=== PATIENT | male | born 1965 | race Caucasian/White ===

== ENCOUNTER → 2017-08-16 | Outpatient (CLI) | payer BC ==
[2016-03-03 07:56] VITALS: BP 141/81
--- NOTE | 2017-08-16 10:20 | RAD ---
Indication: Cough. Time of exam 10:12 AM Correlation is made with prior study from 09/23/2015. FINDINGS: The heart size is normal. The lungs are clear. No pleural effusion or pneumothorax is identified. The pulmonary vascularity is normal. IMPRESSION: No acute abnormality detected.
== END | disposition home or self-care (01) ==
LOC: RAD 10:00
PROVIDERS: ATTEND Nurse Practitioner Family
DX: R05 Cough (principal); Z87.891 Personal history of nicotine dependence
CPT/HCPCS: 71020

== ENCOUNTER → 2017-11-03 | Outpatient (CLI) | payer BC ==
[2016-03-03 07:56] VITALS: BP 141/81
--- NOTE | 2017-11-03 08:20 | RAD ---
2 view CXR: Clinical indications: Shortness of air. Comparison: August 16, 2017 Findings: No acute lung infiltrate or pleural effusion or pulmonary edema or lung mass or pneumothorax is seen. The heart size, pulmonary vasculature, mediastinum and both jaspal are unremarkable. The osseous structures appear intact. Impression: No acute radiographic abnormality is seen.
== END | disposition home or self-care (01) ==
LOC: PMG 07:43
PROVIDERS: ATTEND Physician Assistant
DX: R05 Cough (principal); R06.02 Shortness of breath
CPT/HCPCS: 71046

== ENCOUNTER → 2018-09-07 | Outpatient (CLI) | payer BC ==
[2016-03-03 07:56] VITALS: BP 141/81
--- NOTE | 2018-09-07 13:08 | RAD ---
TESTICULAR/SCROTUM: 09/07/2018 11:08 AM INDICATION: 53 years old Male. . COMPARISON: None available. FINDINGS: Grayscale, color Doppler and spectral waveform analysis were utilized. Right: Testicle: Normal in echotexture without focal lesion. Size: 4.7 x 3.5 x 2.2 cm. Flow: Normal color Doppler flow pattern. Epididymis: Normal in size and echotexture without focal lesion. Hydrocele: None. Varicocele: None. Left: Testicle: Normal in echotexture without focal lesion. Size: 4.4 x 3.1 x 2.4 cm. Flow: Normal color Doppler flow pattern. Epididymis: Normal in size and echotexture without focal lesion. There is a 3 mm epididymal cyst. Hydrocele: None. Varicocele: Small left-sided varicocele is identified with veins measuring up to 3 mm in diameter. No significant change in diameter of the veins with Valsalva. IMPRESSION: 1. Perfusion is noted bilaterally at the time of imaging. No suspicious testicular mass. 2. Small left varicocele. Electronically signed by: Natividad Maddox MD (09/07/2018 1:04 PM) [id number]
== END | disposition home or self-care (01) ==
LOC: US 10:48
PROVIDERS: ATTEND Family Medicine
DX: I86.1 Scrotal varices (principal)
CPT/HCPCS: 76870

== ENCOUNTER 2019-09-13 08:09 | Observation (INO) | payer BC ==
[~2019-09-13] VITALS: Ht 175.3 cm; Wt 116.6 kg
[2019-09-13 08:33] LABS: BASO # 0.3 x10^3/uL (0.0-0.2); BASO % 2 % (0-3); EOS # 0.2 x10^3/uL (0.0-0.7); EOS % 1 % (0-3); HEMATOCRIT 52.2 % (39.0-53.0); HEMOGLOBIN 17.8 g/dL (13.0-17.5); LYMPH # 2.5 x10^3/uL (1.0-4.8); LYMPH % 18 % (24-48); MEAN CORPUSCULAR HEMOGLOBIN 30 pg (25-35); MEAN CORPUSCULAR HGB CONC 34 g/dL (31-37); MEAN CORPUSCULAR VOLUME 87 fL (79-100); MONO # 1.6 x10^3/uL (0.0-1.1); MONO % 12 % (0-9); NEUT # 9.7 x10^3uL (1.8-7.7); NEUT % 68 % (31-73); PLATELET COUNT 307 x10^3/uL (140-400); RED BLOOD COUNT 5.99 x10^6/uL (4.30-5.70); RED CELL DISTRIBUTION WIDTH 13.6 % (11.5-14.5); WHITE BLOOD COUNT 14.3 x10^3/uL (4.0-11.0)
[2019-09-13 08:38] LABS: CREATININE 1.1 mg/dL (0.7-1.3)
--- NOTE | 2019-09-13 08:40 | RAD ---
PORTABLE CHEST 1V 09/13/2019 8:18 AM INDICATION: Chest pain COMPARISON: 11/03/2017 TECHNIQUE: Portable frontal view of the chest is provided. FINDINGS: The cardiomediastinal silhouette is similar in appearance. Limited evaluation secondary to technique. No new airspace consolidation. There are no significant pleural effusions. There is no pulmonary vascular congestion. No pneumothorax. IMPRESSION: There is no acute cardiopulmonary process. Electronically signed by: Natividad Maddox MD (09/13/2019 8:37 AM) [id number]
[2019-09-13 08:50] LABS: ALBUMIN 4.1 g/dL (3.4-5.0); ALBUMIN/GLOBULIN RATIO 0.9 (1.0-1.7); MAGNESIUM 1.8 mg/dL (1.8-2.4); TOTAL BILIRUBIN 0.7 mg/dL (0.2-1.0); TOTAL PROTEIN 8.6 g/dL (6.4-8.2)
[2019-09-13] MEDS ORDERED: IOHEXOL 350 MG/ML 100 ML VIAL. IV ONE (09:30)
--- NOTE | 2019-09-13 10:00 | RAD ---
Examination: CT ANGIOGRAPHY CHEST History: Shortness of breath and chest pain Comparison/Correlation: None Findings: Axial images of chest were obtained following IV contrast. Sagittal and coronal reformatted images were provided. Maximum intensity projection images were acquired. Pulmonary arterial vasculature is normal with no abnormal metabolic disease. No enlarged thoracic lymph nodes. No pneumothorax. Small bullae are present involving the right lower lobe. Subtle interstitial thickening of the lung araiza noted. The tracheobronchial tree is unremarkable. No pericardial or pleural effusion. Thoracic aorta is not opacified for arteriographic assessment but the morphology is grossly unremarkable. Fatty infiltration of the liver noted. Diffuse enlargement which is nodular in appearance involving the left adrenal gland is present likely representing adenomatous involvement. The density slightly above the expected range for adenomatous involvement and of 16 Hounsfield units. Small nodule involving the left adrenal gland has a density expected of benign adenoma. Kyphosis of thoracic spine is noted. Impression: No pulmonary arterial thromboembolic disease. No infiltrates. Nodular appearance of the adrenal glands likely representing adenomatous involvement. Interval follow CT or MRI in 6 months to assess stability may be performed if clinically desired. PQRS Compliance Statement: One or more of the following individualized dose reduction techniques were utilized for this examination: 1. Automated exposure control 2. Adjustment of the mA and/or kV according to patient size 3. Use of iterative reconstruction technique Electronically signed by: Edgar García MD (09/13/2019 9:57 AM) [facility]
[2019-09-13 10:28] LABS: BACTERIA,URINE 0 /HPF (0-FEW); BILIRUBIN,URINE NEG (NEG); CLARITY,URINE HAZY; COLOR,URINE YELLOW; GLUCOSE,URINE NEG (NEG); NITRITE,URINE NEG (NEG); SQUAMOUS EPITHELIAL CELL,UR OCC /LPF; WBC,URINE OCC /HPF (0-4)
[2019-09-13 10:29] LABS: HYALINE CASTS, URINE FEW /HPF
[2019-09-13] MEDS ORDERED: ASPIRIN 81 MG TAB.CHEW PO ONE ×2 (12:15→13:30)
--- NOTE | 2019-09-13 12:15 | PHYS DOC ---
Past History Past Medical History: COPD, Diabetes, Hypertension, Other Past Surgical History: Other Smoking: Quit Greater Than 1 Year Additional Smoking Information: quit in 2014 Alcohol Use: Occasionally Drug Use: None Adult General Chief Complaint Chief Complaint: HYPERTENSION HPI HPI Patient is a 54-year-old male with history hypertension and diabetes who was sent here from his doctor clinic due to elevated blood pressure, dyspnea. Patient said he started having chest pressure last night , feeling nauseous, sweaty, he did feel better so he went to sleep. This morning he woke up , went to work, he fell dizzy, having trouble breathing and nauseous again , he was sweating so he checked his blood pressure at work and it was elevated so he was sent to see his doctor who then sent him here for evaluation. Patient denies any chest pain at this time. Patient denies any fever, no headache. he had no previous history of coronary artery disease. he did take his blood pressure medications this morning. all other systems were negative except stated in HPI. Review of Systems Review of Systems See above Current Medications Current Medications Current Medications Medications (Trade) Dose Ordered Sig/Dayana Start Time Stop Time Status Last Admin Dose Admin Iohexol (Omnipaque 350 Mg/ml) 100 ml 1X ONCE 09/13/19 09:30 09/13/19 09:31 DC 09/13/19 09:30 100 ML Allergies Allergies Allergies Coded Allergies Type Severity Reaction Last Updated Verified No Known Drug Allergies 09/13/19 No Physical Exam Physical Exam See above Constitutional: Well developed, well nourished, no acute distress, non-toxic appearance. [] HENT: Normocephalic, atraumatic, bilateral external ears normal, oropharynx moist, no oral exudates, nose normal. [] Eyes: PERRLA, EOMI, conjunctiva normal, no discharge. [] Neck: Normal range of motion, no tenderness, supple, no stridor. [] Cardiovascular:Heart rate regular rhythm, no murmur [] Lungs & Thorax: Bilateral breath sounds clear to auscultation [] Abdomen: Bowel sounds normal, soft, no tenderness, no masses, no pulsatile masses. [] Skin: Warm, dry, no erythema, no rash. [] Back: No tenderness, no CVA tenderness. [] Extremities: No tenderness, no cyanosis, no clubbing, ROM intact, no edema. [] Neurologic: Alert and oriented X 3, normal motor function, normal sensory function, no focal deficits noted. [] Psychologic: Affect normal, judgement normal, mood normal. [] Current Patient Data Vital Signs Vital Signs Date Time Temp Pulse Resp B/P (MAP) Pulse Ox O2 Delivery O2 Flow Rate FiO2 09/13/19 11:19 86 16 146/86 (106) 96 Room Air 09/13/19 08:23 99.2 Lab Results Laboratory Tests Test 09/13/19 08:15 09/13/19 09:50 White Blood Count 14.3 x10^3/uL (4.0-11.0) H Red Blood Count 5.99 x10^6/uL (4.30-5.70) H Hemoglobin 17.8 g/dL (13.0-17.5) H Hematocrit 52.2 % (39.0-53.0) Mean Corpuscular Volume 87 fL (79-100) Mean Corpuscular Hemoglobin 30 pg (25-35) Mean Corpuscular Hemoglobin Concent 34 g/dL (31-37) Red Cell Distribution Width 13.6 % (11.5-14.5) Platelet Count 307 x10^3/uL (140-400) Neutrophils (%) (Auto) 68 % (31-73) Lymphocytes (%) (Auto) 18 % (24-48) L Monocytes (%) (Auto) 12 % (0-9) H Eosinophils (%) (Auto) 1 % (0-3) Basophils (%) (Auto) 2 % (0-3) Neutrophils # (Auto) 9.7 x10^3uL (1.8-7.7) H Lymphocytes # (Auto) 2.5 x10^3/uL (1.0-4.8) Monocytes # (Auto) 1.6 x10^3/uL (0.0-1.1) H Eosinophils # (Auto) 0.2 x10^3/uL (0.0-0.7) Basophils # (Auto) 0.3 x10^3/uL (0.0-0.2) H Prothrombin Time 10.6 SEC (9.4-11.4) Prothrombin Time INR 1.0 (0.9-1.1) Activated Partial Thromboplast Time 27 SEC (23-33) Sodium Level 138 mmol/L (136-145) Potassium Level 4.0 mmol/L (3.5-5.1) Chloride Level 100 mmol/L (98-107) Carbon Dioxide Level 25 mmol/L (21-32) Anion Gap 13 (6-14) Blood Urea Nitrogen 12 mg/dL (8-26) Creatinine 1.1 mg/dL (0.7-1.3) Estimated GFR (Cockcroft-Gault) 70.0 BUN/Creatinine Ratio 11 (6-20) Glucose Level 133 mg/dL (70-99) H Calcium Level 10.0 mg/dL (8.5-10.1) Magnesium Level 1.8 mg/dL (1.8-2.4) Total Bilirubin 0.7 mg/dL (0.2-1.0) Aspartate Amino Transferase (AST) 20 U/L (15-37) Alanine Aminotransferase (ALT) 26 U/L (16-63) Alkaline Phosphatase 113 U/L (46-116) Troponin I Quantitative < 0.017 ng/mL (0-0.055) VS-Yhv-M-Type Natriuretic Peptide 10 pg/mL (0-124) Total Protein 8.6 g/dL (6.4-8.2) H Albumin 4.1 g/dL (3.4-5.0) Albumin/Globulin Ratio 0.9 (1.0-1.7) L Lipase 77 U/L (73-393) Urine Collection Type Unknown Urine Color Yellow Urine Clarity Hazy Urine pH 7.0 Urine Specific [place] 1.020 Urine Protein Neg (NEG-TRACE) Urine Glucose (UA) Neg mg/dL (NEG) Urine Ketones (Stick) Neg mg/dL (NEG) Urine Blood Neg (NEG) Urine Nitrite Neg (NEG) Urine Bilirubin Neg (NEG) Urine Urobilinogen Dipstick 2.0 mg/dL (0.2 mg/dL) Urine Leukocyte Esterase Neg (NEG) Urine RBC 1-2 /HPF (0-2) Urine WBC Occ /HPF (0-4) Urine Squamous Epithelial Cells Occ /LPF Urine Bacteria 0 /HPF (0-FEW) Urine Hyaline Casts Few /HPF Urine Mucus Slight /LPF EKG EKG EKG WAS DONE AND READ BY THIS PHYSICIAN AT 818, RATE OF 107 BPM, NO STEMI, SINUS TACHYCARDIA. [] Radiology/Procedures Radiology/Procedures [][address] [address] IMAGING REPORT Signed PATIENT: ORLY ARCINIEGA ACCOUNT: [id number] : 1965 LOCATION: ER AGE: 54 SEX: M EXAM STATUS: REG ER ORD. PHYSICIAN: JESSICA YARBROUGH DO REASON: soa, chest pain PROCEDURE: CT ANGIOGRAPHY CHEST Examination: CT ANGIOGRAPHY CHEST History: Shortness of breath and chest pain Comparison/Correlation: None Findings: Axial images of chest were obtained following IV contrast. Sagittal and coronal reformatted images were provided. Maximum intensity projection images were acquired. Pulmonary arterial vasculature is normal with no abnormal metabolic disease. No enlarged thoracic lymph nodes. No pneumothorax. Small bullae are present involving the right lower lobe. Subtle interstitial thickening of the lung araiza noted. The tracheobronchial tree is unremarkable. No pericardial or pleural effusion. Thoracic aorta is not opacified for arteriographic assessment but the morphology is grossly unremarkable. Fatty infiltration of the liver noted. Diffuse enlargement which is nodular in appearance involving the left adrenal gland is present likely representing adenomatous involvement. The density slightly above the expected range for adenomatous involvement and of 16 Hounsfield units. Small nodule involving the left adrenal gland has a density expected of benign adenoma. Kyphosis of thoracic spine is noted. Impression: No pulmonary arterial thromboembolic disease. No infiltrates. Nodular appearance of the adrenal glands likely representing adenomatous involvement. Interval follow CT or MRI in 6 months to assess stability may be performed if clinically desired. PQRS Compliance Statement: One or more of the following individualized dose reduction techniques were utilized for this examination: 1. Automated exposure control 2. Adjustment of the mA and/or kV according to patient size 3. Use of iterative reconstruction technique Electronically signed by: Edgar Oconnor MD (09/13/2019 9:57 AM) [facility] DICTATED AND SIGNED BY: EDGAR OCONNOR MD DATE: 09/13/19 0957 CC: JESSICA YARBROUGH DO; CALI CHIN ~ Course & Med Decision Making Course & Med Decision Making Pertinent Labs and Imaging studies reviewed. (See chart for details) [] Dragon Disclaimer Dragon Disclaimer This electronic medical record was generated, in whole or in part, using a voice recognition dictation system. Departure Departure: Impression: Primary Impression: Chest pain Additional Impression: Hypertension Disposition: 09 ADMITTED INPATIENT Admitting Physician: Basilia Pierson Condition: STABLE Referrals: CALI CHIN (PCP) HEART Score for Chest Pain PTs The HEART Score for CP Pts HEART Score for Chest Pain: HEART Score for Chest Pain Response (Comments) Value History Highly Suspicious 2 ECG Nonspecific Repolarizatio 1 Age >45 - < 65 1 Risk Factors 1 or 2 Risk Factors 1 Troponin < Normal Limit 0 Total 5 Risk Factors: Risk Factors: DM, Current or recent (<one month) smoker, HTN, HLP, family history of CAD, obesity. Risk Scores: Score 0 - 3: 2.5% MACE over next 6 weeks - Discharge Home Score 4 - 6: 20.3% MACE over next 6 weeks - Admit for Clinical Observation Score 7 - 10: 72.7% MACE over next 6 weeks - Early Invasive Strategies Problem Qualifiers JESSICA YARBROUGH DO Sep 13, 2019 12:15
[2019-09-13] MEDS ORDERED: METOPROLOL TARTRATE 5 MG/5 ML VIAL. IV ONE (12:30)
[2019-09-13 16:50] LABS: INFLUENZA A PATIENT NEGATIVE (NEGATIVE); INFLUENZA B PATIENT NEGATIVE (NEGATIVE)
[2019-09-13 17:16] VITALS: BP 165/96
--- NOTE | 2019-09-13 17:24 | NUR ---
The patient, ORLY ARCINIEGA, 54 y/o, M admitted by JESSICA YBARRA MD, was given written information regarding hospital policies, unit procedures and contact persons. Valuables were checked and left with patient at bedside. Patient admitted to [address] [place] [address] with a diagnosis of chest pain. Cardiology was on unit at the time of admission and consulted with patient. Dr. Ybarra was notified via telephone of patient arrival. No new orders at this time. Cardiology orders were to monitor patient blood pressure, reconcile home meds and notify cardiology when meds are in, monitor troponins and follow up ECHOCARDIOGRAM when patient discharged from hospital. Patient is alert and oriented x 4 , speech is clear, able to make wants and needs known and able to verbalize understanding of others. Denies any chest pain at this time.
--- NOTE | 2019-09-13 17:41 | EKG ---
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
[2019-09-13] MEDS ORDERED: METF10007 PO (18:30)
[2019-09-13] MEDS ORDERED: BUPR300T92 PO (18:33)
[2019-09-13] MEDS ORDERED: FURO40TA4 PO (18:33)
[2019-09-13] MEDS ORDERED: HYDR12.572 PO (18:33)
[2019-09-13] MEDS ORDERED: LISI40TA PO (18:33)
[2019-09-13] MEDS ORDERED: ZOLP12.54 PO (18:33)
[2019-09-13] MEDS ORDERED: POTA20TA4 PO (18:33)
[2019-09-13] MEDS ORDERED: ZOLPIDEM 5 MG TABLET. PO PRN ×2 (18:45→22:30)
[2019-09-13 19:41] VITALS: BP 133/78
--- NOTE | 2019-09-13 20:12 | CONS ---
DATE OF CONSULTATION: 09/13/2019 REASON FOR CONSULTATION: Chest pain. HISTORY OF PRESENT ILLNESS: The patient is a pleasant 54-year-old man with hypertension, diabetes, came into the hospital in the setting of chest discomfort. He had some chest discomfort yesterday in the setting of elevated blood pressures and also had some recurrence this morning. He was advised to seek attention in the ER. Upon arrival to the ER, he was hypertensive with systolic blood pressure above 170 and was treated with medical therapy and had some improvement. He was admitted for a rule out. In speaking with the patient and his family, he has not had any significant cardiac limitations such as chest pain, dyspnea, orthopnea, PND or lower extremity edema. No syncope or palpitations. He has never had any prior cardiac interventions but approximately 5 years ago had a heart catheterization according to him for evaluation of atypical chest pain. PAST MEDICAL HISTORY: As noted above. SOCIAL HISTORY: He works at the [employer]. Denies any alcohol, tobacco or illicit drug use. He is . FAMILY HISTORY: Notable for coronary artery disease in his father in his 50s. REVIEW OF SYSTEMS: Negative for 10 out of 14 systems reviewed, unless otherwise mentioned above in HPI. ALLERGIES: No known drug allergies. CURRENT CARDIOVASCULAR MEDICATIONS: He does not remember his current cardiac medications and he is waiting a list to be sent from home at this time. PHYSICAL EXAMINATION: VITAL SIGNS: Stable with blood pressure reduced to 145/81. GENERAL: He is alert and oriented, no acute distress. HEAD AND NECK: Unremarkable. CARDIAC: Regular rate and rhythm without murmurs, rubs or gallops. LUNGS: Clear to auscultation bilaterally. ABDOMEN: Soft, nontender, nondistended. EXTREMITIES: Without any clubbing or cyanosis. 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 MUSCULOSKELETAL: No obvious trauma. NEUROLOGIC: No focal deficits. DIAGNOSTIC STUDIES: Cardiac enzymes are negative x 2 and EKG is unremarkable. IMPRESSION: Chest pain, likely secondary to uncontrolled hypertension: The etiology of uncontrolled hypertension is a little unclear. I suspect that he has had some suboptimally treated blood pressures. RECOMMENDATIONS: Upon availability and subsequent review of his home medications, we will try to up titrate doses of his current meds as tolerated and if he is maximized on his current medications, we will likely add additional agents to obtain a more appropriate blood pressure of less than 140. We will plan for ambulating the patient after his blood pressure control and if he is chest pain free, could be discharged with plans for outpatient ischemic evaluation. Should he have any recurrent chest pain at that time, could consider further evaluation with invasive versus noninvasive testing. Thank you for this consultation. GEORGETTE HENDRICKSON MD DR: ELZBIETA/jillian JOB#: [id number] / [id number]
[2019-09-13 22:20] VITALS: BP 143/76
--- NOTE | 2019-09-13 22:35 | HP ---
ADMIT DATE: 09/13/2019 HISTORY OF PRESENT ILLNESS: The patient is a 54-year-old gentleman who experienced a 1-day history of chest pressure, feeling nausea, some sweating, so he went to sleep, morning woke up, he was still feeling somewhat dizzy and trouble breathing, as a result, went into his primary care. They sent to the Emergency Room where he was evaluated and admitted for rule out OH protocol. The patient has multiple risk factors including diabetes, coronary artery disease, hypercholesterolemia and depression for that matter. The patient was admitted for rule out OH protocol. PAST MEDICAL HISTORY: As noted, he has had angina, coronary artery disease, hypercholesterolemia, hypertension, bone cancer, left arm amputation, depression, influenza vaccination up-to-date. The patient extended spectrum beta lactamase use, vancomycin-resistant Staph aureus, methicillin-resistant Staph aureus it is noted. ALLERGIES: No known drug allergies. MEDICATIONS: Include lisinopril 40 mg a day, bupropion XL 300 mg a day, Ambien 12.5 at bedtime, furosemide 40 mg a day, hydrochlorothiazide 12.5 mg a day, metformin 1000 mg b.i.d. FAMILY HISTORY: None unremarkable. SOCIAL HISTORY: The patient denies any smoking, alcohol or tobacco use. FAMILY HISTORY: Notable for coronary artery disease. REVIEW OF SYSTEMS: The patient has noted chest tightness. He did have an elevated blood pressure 170, but no neurological symptomatology. The patient denies any syncope, orthopnea or dyspnea. The patient denies abdominal pain, but does have some nausea. The patient otherwise has no neurological dysfunction at the present time. PHYSICAL EXAMINATION: GENERAL: This is a pleasant gentleman in no apparent distress. VITAL SIGNS: Blood pressure 145/78, respiratory rate 20, pulse 104 running a low-grade temperature of 99.2. NEUROLOGIC: The patient otherwise alert and oriented x 3. NECK: Supple, without JVD, carotid bruits. LUNGS: The patient's lungs were clear to auscultation, slight decreased breath sounds, but otherwise unremarkable. CARDIOVASCULAR: Regular sinus rhythm, S1, S2, without murmur, rub, thrill, or extra heart sound. ABDOMEN: Soft, nontender, no rebound or guarding. Positive bowel sounds, no hepatosplenomegaly. EXTREMITIES: No clubbing, cyanosis, or edema. The patient had a left upper arm extremity amputation at the level of the elbow. Otherwise, neurologically the patient is alert and oriented. Speech is fluent, spontaneous, appropriate. Cranial nerves 2-12 are grossly intact. The patient will be admitted for further evaluation as noted. IMPRESSION: Chest pain, possibly related to uncontrolled blood pressure as his blood pressure had gone up to 170 while he was coming into the Emergency Room. PLAN: The patient will be admitted for rule out [place] protocol. Dr. Diaz will be consulted and make further evaluation on him as indicated with rule out OH protocol. JESSICA YBARRA MD DR: FADI/jillian JOB#: [id number] / [id number]
[2019-09-14 05:21] VITALS: BP 128/83
[2019-09-14 06:34] LABS: BASO # 0.1 x10^3/uL (0.0-0.2); BASO % 1 % (0-3); EOS # 0.2 x10^3/uL (0.0-0.7); EOS % 3 % (0-3); HEMATOCRIT 48.5 % (39.0-53.0); HEMOGLOBIN 16.7 g/dL (13.0-17.5); LYMPH # 2.3 x10^3/uL (1.0-4.8); LYMPH % 24 % (24-48); MEAN CORPUSCULAR HEMOGLOBIN 30 pg (25-35); MEAN CORPUSCULAR HGB CONC 34 g/dL (31-37); MEAN CORPUSCULAR VOLUME 87 fL (79-100); MONO # 1.2 x10^3/uL (0.0-1.1); MONO % 12 % (0-9); NEUT # 5.9 x10^3uL (1.8-7.7); NEUT % 60 % (31-73); PLATELET COUNT 259 x10^3/uL (140-400); RED BLOOD COUNT 5.59 x10^6/uL (4.30-5.70); RED CELL DISTRIBUTION WIDTH 13.4 % (11.5-14.5); WHITE BLOOD COUNT 9.7 x10^3/uL (4.0-11.0)
[2019-09-14 06:45] LABS: CALCIUM 8.8 mg/dL (8.5-10.1); CREATININE 0.8 mg/dL (0.7-1.3); GFR 101.1; POTASSIUM 4.2 mmol/L (3.5-5.1)
[2019-09-14 07:38] VITALS: BP 128/83
[2019-09-14] MEDS ORDERED: buPROPion XL 300 MG TAB.ER.24H. PO SCH (08:00)
--- NOTE | 2019-09-14 08:13 | PDOC ---
CARDIO Progress Notes Date & Time Date of Service DATE: 09/14/19 TIME: 08:02 Time of Evaluation 08:02 Subjective Notes No chest pain, shortness of breath, dizziness, diaphoresis Vitals Vitals Vital Signs Date Time Temp Pulse Resp B/P (MAP) Pulse Ox O2 Delivery O2 Flow Rate FiO2 09/14/19 07:38 81 128/83 09/14/19 05:21 98.0 18 95 Room Air Weight Weight [ ] Input and Output I.O. Intake and Output 09/14/19 06:59 Intake Total 720 ml Balance 720 ml Intake Oral 720 ml # Voids 2 Laboratory Labs Laboratory Tests Test 09/13/19 08:15 09/13/19 09:50 09/13/19 16:20 09/13/19 16:53 White Blood Count 14.3 x10^3/uL (4.0-11.0) Red Blood Count 5.99 x10^6/uL (4.30-5.70) Hemoglobin 17.8 g/dL (13.0-17.5) Hematocrit 52.2 % (39.0-53.0) Mean Corpuscular Volume 87 fL (79-100) Mean Corpuscular Hemoglobin 30 pg (25-35) Mean Corpuscular Hemoglobin Concent 34 g/dL (31-37) Red Cell Distribution Width 13.6 % (11.5-14.5) Platelet Count 307 x10^3/uL (140-400) Neutrophils (%) (Auto) 68 % (31-73) Lymphocytes (%) (Auto) 18 % (24-48) Monocytes (%) (Auto) 12 % (0-9) Eosinophils (%) (Auto) 1 % (0-3) Basophils (%) (Auto) 2 % (0-3) Neutrophils # (Auto) 9.7 x10^3uL (1.8-7.7) Lymphocytes # (Auto) 2.5 x10^3/uL (1.0-4.8) Monocytes # (Auto) 1.6 x10^3/uL (0.0-1.1) Eosinophils # (Auto) 0.2 x10^3/uL (0.0-0.7) Basophils # (Auto) 0.3 x10^3/uL (0.0-0.2) Prothrombin Time 10.6 SEC (9.4-11.4) Prothromb Time International Ratio 1.0 (0.9-1.1) Activated Partial Thromboplast Time 27 SEC (23-33) Sodium Level 138 mmol/L (136-145) Potassium Level 4.0 mmol/L (3.5-5.1) Chloride Level 100 mmol/L (98-107) Carbon Dioxide Level 25 mmol/L (21-32) Anion Gap 13 (6-14) Blood Urea Nitrogen 12 mg/dL (8-26) Creatinine 1.1 mg/dL (0.7-1.3) Estimated GFR (Cockcroft-Gault) 70.0 BUN/Creatinine Ratio 11 (6-20) Glucose Level 133 mg/dL (70-99) Calcium Level 10.0 mg/dL (8.5-10.1) Magnesium Level 1.8 mg/dL (1.8-2.4) Total Bilirubin 0.7 mg/dL (0.2-1.0) Aspartate Amino Transf (AST/SGOT) 20 U/L (15-37) Alanine Aminotransferase (ALT/SGPT) 26 U/L (16-63) Alkaline Phosphatase 113 U/L (46-116) Troponin I Quantitative < 0.017 ng/mL (0-0.055) < 0.017 ng/mL (0-0.055) YG-Tas-P-Type Natriuretic Peptide 10 pg/mL (0-124) Total Protein 8.6 g/dL (6.4-8.2) Albumin 4.1 g/dL (3.4-5.0) Albumin/Globulin Ratio 0.9 (1.0-1.7) Lipase 77 U/L (73-393) Urine Collection Type Unknown Urine Color Yellow Urine Clarity Hazy Urine pH 7.0 Urine Specific Mallard 1.020 Urine Protein Neg (NEG-TRACE) Urine Glucose (UA) Neg mg/dL (NEG) Urine Ketones (Stick) Neg mg/dL (NEG) Urine Blood Neg (NEG) Urine Nitrite Neg (NEG) Urine Bilirubin Neg (NEG) Urine Urobilinogen Dipstick 2.0 mg/dL (0.2 mg/dL) Urine Leukocyte Esterase Neg (NEG) Urine RBC 1-2 /HPF (0-2) Urine WBC Occ /HPF (0-4) Urine Squamous Epithelial Cells Occ /LPF Urine Bacteria 0 /HPF (0-FEW) Urine Hyaline Casts Few /HPF Urine Mucus Slight /LPF Influenza Type A (Rapid) Negative (NEGATIVE) Influenza Type B (Rapid) Negative (NEGATIVE) Glucose (Fingerstick) 140 mg/dL (70-99) Test 09/13/19 20:06 09/14/19 06:13 09/14/19 07:21 Glucose (Fingerstick) 179 mg/dL (70-99) 130 mg/dL (70-99) White Blood Count 9.7 x10^3/uL (4.0-11.0) Red Blood Count 5.59 x10^6/uL (4.30-5.70) Hemoglobin 16.7 g/dL (13.0-17.5) Hematocrit 48.5 % (39.0-53.0) Mean Corpuscular Volume 87 fL (79-100) Mean Corpuscular Hemoglobin 30 pg (25-35) Mean Corpuscular Hemoglobin Concent 34 g/dL (31-37) Red Cell Distribution Width 13.4 % (11.5-14.5) Platelet Count 259 x10^3/uL (140-400) Neutrophils (%) (Auto) 60 % (31-73) Lymphocytes (%) (Auto) 24 % (24-48) Monocytes (%) (Auto) 12 % (0-9) Eosinophils (%) (Auto) 3 % (0-3) Basophils (%) (Auto) 1 % (0-3) Neutrophils # (Auto) 5.9 x10^3uL (1.8-7.7) Lymphocytes # (Auto) 2.3 x10^3/uL (1.0-4.8) Monocytes # (Auto) 1.2 x10^3/uL (0.0-1.1) Eosinophils # (Auto) 0.2 x10^3/uL (0.0-0.7) Basophils # (Auto) 0.1 x10^3/uL (0.0-0.2) Sodium Level 138 mmol/L (136-145) Potassium Level 4.2 mmol/L (3.5-5.1) Chloride Level 101 mmol/L (98-107) Carbon Dioxide Level 26 mmol/L (21-32) Anion Gap 11 (6-14) Blood Urea Nitrogen 13 mg/dL (8-26) Creatinine 0.8 mg/dL (0.7-1.3) Estimated GFR (Cockcroft-Gault) 101.1 Glucose Level 145 mg/dL (70-99) Calcium Level 8.8 mg/dL (8.5-10.1) Physical Exams HEENT: Neck Supple W Full Motion Chest: Symmetric Lungs: Clear to Auscultation Heart: S1S2, RRR Abdomen: Soft N/T Extremities: No Edema Neurology: alert, oriented, follow commands Assessment Assessment 1. Chest pain, atypical; AMI ruled out. Most probably secondary to #2. 2. Hypertension; now controlled 3. Hyperlipidemia 4. Diabetes,II Recommendations Lipids- statin if indicated ASA Add low-dose BB Will arrange for outpatient stress test based upon risk factors May discharge from a CV standpoint and f/u in our office. FRANNIE AVALOS APRN Sep 14, 2019 08:13
[2019-09-14] MEDS ORDERED: NITR0.4T22 SL (08:28)
--- NOTE | 2019-09-14 08:56 | NUR ---
Discharge Note: PERCY ARCINIEGA Discharge instructions and discharge home medications reviewed with Patient and a copy given. All questions have been answered and understanding verbalized. The following instructions and handouts were given: CHEST PAIN Discontinued lines and drains: IV IN RAC D/C TIP IN TACT Patient discharged to home. Son present at bedside at the time of discharge.
[2019-09-14] MEDS ORDERED: hydroCHLOROthiazide 12.5 MG CAPSULE PO SCH (09:00)
[2019-09-14] MEDS ORDERED: POTASSIUM CHLORIDE 20 MEQ TABLET.ER. PO SCH (09:00)
[2019-09-14] MEDS ORDERED: FUROSEMIDE 40 MG TABLET PO SCH (09:00)
[2019-09-14] MEDS ORDERED: LISINOPRIL 20 MG TABLET PO SCH (09:00)
[2019-09-15 00:06] LABS: HEMOGLOBIN A1C 6.8 % (4.8-5.6)
[2019-09-15] MEDS ORDERED: metFORMIN 500 MG TABLET PO SCH (08:00)
== END 2019-09-14 10:24 | disposition home or self-care (01) ==
LOC: ER 08:09 → 1 SOUTH 16:53
PROVIDERS: ADMIT Family Medicine; ATTEND Family Medicine
DX: R07.89 Other chest pain (principal); I10 Essential (primary) hypertension; R42 Dizziness and giddiness; I25.10 Atherosclerotic heart disease of native coronary artery without angina pectoris; J44.9 Chronic obstructive pulmonary disease, unspecified; E78.00 Pure hypercholesterolemia, unspecified; E11.9 Type 2 diabetes mellitus without complications; Z85.830 Personal history of malignant neoplasm of bone; Z87.891 Personal history of nicotine dependence
CPT/HCPCS: 36415; 71045; 71275; 80048; 80053; 80061; 81001; 82947; 83036; 83690; 83735; 83880; 84484; 85025; 85610; 85730; 87804; 93005; 96374; 99284; G0378; J3490; Q9967; G0379

== ENCOUNTER 2020-05-23 11:44 | Emergency (ER) | payer BC ==
[~2020-05-23] VITALS: Ht 175.3 cm; Wt 91.0 kg
[~2020-05-23 11:44] MED LIST: BUPR300T92 PO; FURO40TA4 PO; HYDR12.572 PO; LISI40TA PO; METF10007 PO; NITR0.4T22 SL; POTA20TA4 PO; ZOLP12.56 PO
[2020-05-23 11:45] VITALS: BP 157/87
[2020-05-23] MEDS ORDERED: ERYT1OIN6 OP (11:54)
--- NOTE | 2020-05-23 11:54 | PHYS DOC ---
Past History Past Medical History: COPD, Diabetes, Hypertension, Other Past Surgical History: Other Smoking: Non-smoker, Quit Greater Than 1 Year Alcohol Use: Occasionally Drug Use: None General Adult EDM: Chief Complaint: EYE PROBLEMS HPI: HPI: 55-year-old male presents with report of accidental splash of bleach to his left eye which occurred prior to arrival. 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 Patient reports he immediately flushed his eye out with water. Reports some continued irritation and redness. Denies any visual changes. Denies use of contacts. Review of Systems: Review of Systems: Eyes: Reports left eye redness and pain; denies visual changes Integument: Denies rash or skin lesions Neurologic: Denies headache, focal weakness or sensory changes Complete systems were reviewed and found to be within normal limits, except as documented in this note. Allergies: Allergies: Allergies Coded Allergies Type Severity Reaction Last Updated Verified No Known Drug Allergies 09/13/19 No Physical Exam: PE: Constitutional: Well developed, well nourished, no acute distress, non-toxic appearance HENT: Normocephalic, atraumatic Eyes: PERRL, EOMI, conjunctiva injected on left, no fluorescein uptake, no discharge Neck: Normal range of motion, no tenderness, supple Lungs & Thorax: No respiratory distress, equal chest rise and fall Skin: Warm, dry, no erythema, no rash Extremity: Left arm amputation above elbow Neurologic: Alert and oriented X 3, no focal deficits noted Psychologic: Affect normal, judgment normal EKG: EKG: [] Radiology/Procedures: Radiology/Procedures: [] Course & Med Decision Making: Course & Med Decision Making Patient presents with HPI and physical exam consistent for chemical conjunctivitis after exposure to "bleach ". Patient previously had irrigated the eye appropriately. Tetracaine and fluorescein dye applied. Patient without fluorescein uptake. Symptoms appear more consistent with chemical conjunctivitis. Empiric antibiotic ointment applied for comfort and protection. 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 Discussed findings and plan with patient, who acknowledges understanding and agreement. Phyllis Disclaimer: Phyllis Disclaimer: This electronic medical record was generated, in whole or in part, using a voice recognition dictation system. Departure Departure: Impression: Primary Impression: Chemical conjunctivitis of left eye Disposition: HOME/RESIDENCE PRIOR TO ADM Condition: STABLE Referrals: CALI CHIN (PCP) Patient Instructions: Conjunctivitis, Chemical, [id number] Scripts Erythromycin Base (Erythromycin) 1 Gm Oint...g. 0.25 GM OP QID for Conjunctivitis for 5 Days, #1 TUBE Prov: CATRACHO DEE DO 05/23/20 Justification of Admission: Justification of Admission: Justification of Admission Dx: N/A CATRACHO DEE DO May 23, 2020 11:54
[2020-05-23] MEDS ORDERED: TETRACAINE 0.5% OPHTH SOLUTION 4ML BOTTLE. OS ONE (12:00)
[2020-05-23] MEDS ORDERED: FLUORESCEIN 1MG EYE STRIP. OS ONE (12:00)
[2020-05-23] MEDS ORDERED: ERYTHROMYCIN 0.5% OPHTH OINTMENT 1GM TUBE. OS ONE (12:00)
== END 2020-05-23 12:15 | disposition home or self-care (01) ==
LOC: ER 11:44
DX: H10.212 Acute toxic conjunctivitis, left eye (principal); J44.9 Chronic obstructive pulmonary disease, unspecified; E11.9 Type 2 diabetes mellitus without complications; I10 Essential (primary) hypertension; Z87.891 Personal history of nicotine dependence
CPT/HCPCS: 99283

== ENCOUNTER → 2021-02-06 | Outpatient (CLI) | payer BC ==
[~2021-02-06] MED LIST changes: +ERYT1OIN6 OP; -LISI40TA PO; +LISI40TA6 PO
--- NOTE | 2021-02-06 14:53 | RAD ---
EXAM: Left upper extremity sonogram. HISTORY: Nodule amputation site. TECHNIQUE: Sonographic imaging of the left upper extremity at the site of for indication was rozina mcgowan. COMPARISON: Radiographs obtained on the same date. FINDINGS: There is a complex fluid collection with internal debris measuring 3.3 x 3.0 x 2.1 cm withi n the stump of a left forearm status post amputation. IMPRESSION: 3.3 cm complex fluid collection containing debris within the forearm soft tissues status post amputation. The differential includes an abscess or hematoma. Correlate with physical exam findi ngs and patient symptomatology. Electronically signed by: Julia Nj MD (02/06/2021 2:51 PM) [id number]
--- NOTE | 2021-02-06 14:55 | RAD ---
EXAM: Left elbow, 3 views. HISTORY: Palpable lump at amputation stump site. COMPARISON: None. FINDINGS: 3 views of the left elbow are obtained. There is a left forearm amputation at the level of the proximal ulnar and radial diaphyses. There is soft tissue prominence along the amputation stump p ossibly corresponding with the palpable abnormality concern. There are vascular clips. There is bone demineralization. There is no elbow effusion. There is no convincing osteomyelitis. IMPRESSION: Soft tissue prominence along the distal aspect of the forearm stump status post amputatio n. This can be better characterized with a sonogram or cross-sectional imaging. No underlying osseous lesion is seen. Electronically signed by: Julia Nj MD (02/06/2021 2:52 PM) [id number]
== END ==
LOC: US 14:25
PROVIDERS: ATTEND Physician Assistant Medical
DX: R22.32 Localized swelling, mass and lump, left upper limb (principal); Z89.212 Acquired absence of left upper limb below elbow
CPT/HCPCS: 73080; 76881

== ENCOUNTER 2021-05-17 15:06 | Emergency (ER) | payer BC ==
[~2021-05-17] VITALS: Ht 175.3 cm; Wt 125.0 kg
[~2021-05-17 15:06] MED LIST changes: +POTA-121 PO; -POTA20TA4 PO
[2021-05-17 15:20] VITALS: BP 140/90
--- NOTE | 2021-05-17 15:50 | PHYS DOC ---
Past History Past Medical History: COPD, Diabetes, Hypertension, Other Past Surgical History: Other Additional Past Surgical Histo: left arm amputation Smoking: Non-smoker, Quit Greater Than 1 Year Alcohol Use: None Drug Use: None General Adult EDM: Chief Complaint: COUGH HPI: HPI: 56-year-old male presents with cough and diaphoresis. Patient has been feeling under the weather for the last 5 days. He has had a cough, fatigue, body aches. He is also been getting episodes of diaphoresis but no chest pain. He has a strong family history of cardiac problems so he came in for evaluation. Patient is fully vaccinated against COVID-19. He has no personal history of cardiac disease. He had a stress test and cath several years ago that was clean. Patient has also had pneumonia in the past that was bilateral. This was about 4 years ago. Patient denies fever or chills. Review of Systems: Review of Systems: Constitutional: Denies fever or chills Eyes: Denies change in visual acuity HENT: Denies nasal congestion or sore throat Respiratory: Cough without shortness of breath Cardiovascular: Denies chest pain or edema GI: Denies abdominal pain, nausea, vomiting, bloody stools or diarrhea : Denies dysuria Musculoskeletal: Denies back pain or joint pain Integument: Denies rash Neurologic: Denies headache, focal weakness or sensory changes Endocrine: Denies polyuria or polydipsia Lymphatic: Denies swollen glands Psychiatric: Denies depression or anxiety Allergies: Allergies: Allergies Coded Allergies Type Severity Reaction Last Updated Verified No Known Drug Allergies 09/13/19 No Physical Exam: PE: Constitutional: Well developed, well nourished, morbidly obese, no acute distress, non-toxic appearance. [] HENT: Normocephalic, atraumatic, bilateral external ears normal, oropharynx moist, no oral exudates, nose normal. [] Eyes: PERRLA, EOMI, conjunctiva normal, no discharge. [] Neck: Normal range of motion, no tenderness, supple, no stridor. [] Cardiovascular: Heart rate 94, regular rhythm, no murmur [] Lungs & Thorax: Bilateral breath sounds clear to auscultation [] Abdomen: Bowel sounds normal, soft, no tenderness, no masses, no pulsatile masses. [] Skin: Warm, dry, no erythema, no rash. [] Back: No tenderness, no CVA tenderness. [] Extremities: Left arm amputation above the elbow [] Neurologic: Alert and oriented X 3, normal motor function, normal sensory function, no focal deficits noted. [] Psychologic: Affect normal, judgement normal, mood normal. [] Current Patient Data: Vital Signs: Vital Signs Date Time Temp Pulse Resp B/P (MAP) Pulse Ox O2 Delivery O2 Flow Rate FiO2 05/17/21 15:20 97.5 102 20 140/90 99 Room Air EKG: EKG: Sinus rhythm, rate 84, normal axis, no ST ovation or depression. [] Radiology/Procedures: Radiology/Procedures: [] Impressions: XR CHEST 1V INDICATION: SOB . COMPARISON STUDY: 09/13/2019. FINDINGS: Lungs: Normal lung volume. Left basilar opacities. The tracheobronchial tree and hilar structures are normal. Pleura: No pleural effusion or pneumothorax. Heart and Mediastinum: Cardiomegaly. The great vessels of the thorax are normal. IMPRESSION: Left basilar opacities, which could represent subsegmental atelectasis or potentially an infectious process. Electronically signed by: Bijal Concepcion MD (05/17/2021 4:17 PM) [facility] DICTATED AND SIGNED BY: BIJAL CONCEPCION MD DATE: 05/17/21 161 CC: DEISY VASQUEZ DO; CALI CHIN ~MTH0 0 Heart Score: C/O Chest Pain: No Risk Factors: Risk Factors: DM, Current or recent (<one month) smoker, HTN, HLP, family history of CAD, obesity. Risk Scores: Score 0 - 3: 2.5% MACE over next 6 weeks - Discharge Home Score 4 - 6: 20.3% MACE over next 6 weeks - Admit for Clinical Observation Score 7 - 10: 72.7% MACE over next 6 weeks - Early Invasive Strategies Course & Med Decision Making: Course & Med Decision Making Pertinent Labs and Imaging studies reviewed. (See chart for details) The patient's EKG is unremarkable. His chest x-ray is suggestive of left lower infiltrate. Given his symptoms, I will treat him with azithromycin and Rocephin in the ER. [] Dragon Disclaimer: Dragon Disclaimer: This electronic medical record was generated, in whole or in part, using a voice recognition dictation system. Departure Departure: Impression: Primary Impression: Left lower lobe pneumonia Qualified Codes: J18.9 - Pneumonia, unspecified organism Additional Impression: Hyperglycemia Disposition: HOME / SELF CARE / HOMELESS Condition: STABLE Referrals: CALI CHIN (PCP) Patient Instructions: Pneumonia, Adult, [id number] Scripts Azithromycin (AZITHROMYCIN TABLET) 250 Mg Tablet 250 MG PO DAILY for ANTI-BIOTIC for 4 Days, #4 TAB 0 Refills Prov: DEISY VASQUEZ DO 05/17/21 DEISY VASQUEZ DO May 17, 2021 15:50
--- NOTE | 2021-05-17 15:57 | EKG ---
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
[2021-05-17 16:19] LABS: BASO # 0.1 x10^3/uL (0.0-0.2); BASO % 1 % (0-3); EOS # 0.3 x10^3/uL (0.0-0.7); EOS % 2 % (0-3); HEMATOCRIT 49.1 % (39.0-53.0); HEMOGLOBIN 16.6 g/dL (13.0-17.5); LYMPH # 2.6 x10^3/uL (1.0-4.8); LYMPH % 21 % (24-48); MEAN CORPUSCULAR HEMOGLOBIN 31 pg (25-35); MEAN CORPUSCULAR HGB CONC 34 g/dL (31-37); MEAN CORPUSCULAR VOLUME 92 fL (79-100); MONO # 1.6 x10^3/uL (0.0-1.1); MONO % 13 % (0-9); NEUT # 7.7 x10^3uL (1.8-7.7); NEUT % 63 % (31-73); PLATELET COUNT 250 x10^3/uL (140-400); RED BLOOD COUNT 5.35 x10^6/uL (4.30-5.70); RED CELL DISTRIBUTION WIDTH 13.2 % (11.5-14.5); WHITE BLOOD COUNT 12.3 x10^3/uL (4.0-11.0)
--- NOTE | 2021-05-17 16:19 | RAD ---
XR CHEST 1V INDICATION: SOB . COMPARISON STUDY: 09/13/2019. FINDINGS: Lungs: Normal lung volume. Left basilar opacities. The tracheobronchial tree and hilar structures are normal. Pleura: No pleural effusion or pneumothorax. Heart and Mediastinum: Cardiomegaly. The great vessels of the thorax are normal. IMPRESSION: Left basilar opacities, which could represent subsegmental atelectasis or potentially an infectious p rocess. Electronically signed by: Ez Goncalves MD (05/17/2021 4:17 PM) [facility]
[2021-05-17 16:30] LABS: CALCIUM 9.6 mg/dL (8.5-10.1); CREATININE 0.8 mg/dL (0.7-1.3); GFR 100.4; POTASSIUM 4.5 mmol/L (3.5-5.1)
[2021-05-17] MEDS ORDERED: AZITHROMYCIN 250 MG TABLET. PO ONE (16:30)
[2021-05-17 16:36] LABS: ALBUMIN 3.9 g/dL (3.4-5.0); ALBUMIN/GLOBULIN RATIO 1.2 (1.0-1.7); TOTAL BILIRUBIN 0.3 mg/dL (0.2-1.0); TOTAL PROTEIN 7.1 g/dL (6.4-8.2)
[2021-05-17] MEDS ORDERED: AZIT250T6 PO (16:44)
[2021-05-17] MEDS ORDERED: cefTRIAXone IM 1 GM VIAL IM ONE (16:45)
[2021-05-17] MEDS ORDERED: IV NORMAL SALINE 50ML 50 ML ONE (16:46)
== END 2021-05-17 16:58 | disposition home or self-care (01) ==
LOC: ER 15:06
DX: J18.1 Lobar pneumonia, unspecified organism (principal); E11.65 Type 2 diabetes mellitus with hyperglycemia; J44.9 Chronic obstructive pulmonary disease, unspecified; I10 Essential (primary) hypertension; Z87.891 Personal history of nicotine dependence; Z20.822 Contact with and (suspected) exposure to COVID-19
CPT/HCPCS: 71045; 80053; 84484; 85025; 93005; 96372; 99285; C9803; J0696; U0003